=== PATIENT | female | born 1985 | race Caucasian/White ===

== ENCOUNTER 2021-04-17 11:45 | Emergency (ER) | payer OTHER | END 2021-04-17 15:04 | disposition home or self-care (01) | LOC: FER 11:45 | DX: S80.12XA Contusion of left lower leg, initial encounter (principal); Z88.1 Allergy status to other antibiotic agents; Z88.2 Allergy status to sulfonamides; Z88.8 Allergy status to other drugs, medicaments and biological substances; W19.XXXA Unspecified fall, initial encounter | CPT/HCPCS: 93971 ==